=== PATIENT | female | born 1980 | race Caucasian/White ===

== ENCOUNTER 2024-08-14 08:11 | Emergency (ER) | payer OTHER, SELFPAY ==
[2024-08-14 08:12] VITALS: BP 151/111; PULSE 85; RESP 16; TEMP 36.8; O2SAT 100; BMI 38.7
--- NOTE | 2024-08-14 08:36 | ED.VIS.BACK ---
HPI History of Present Illness Chief Complaint: Back Detail of Chief Complaint: Back pain since mid April Informant: patient Onset/Context/Timing Onset: Month(s) Context: Sudden Onset Chronic pain exacerbated by: Certain movements Injury: - (Nothing that she recalls) Timing: Continuous Quality: Dull and Burning Location: Lumbar (Left L1 nerve root) Current Severity: Moderate Maximum Severity: Severe Worsened by: improves with Movement and Ambulation Relieved by: - (Prefers to stand over sitting.) Associated Symptoms Associated Symptoms: Numbness, Tingling and - (No saddle paresthesia or anesthesia. No foot drop. No buckling of the knee going up or down steps); Negative for Radiation to Right Leg, Radiation to Left Leg, Fever, Abdominal Pain, Dysuria, Unable to Ambulate, Unable to Transfer, Urinary Retention, Urinary Incontinence, Constipation or Fecal Incontinence Narrative Narrative: Patient is a 44-year-old woman with a history of hypercholesterolemia. She has a BMI of 38.7. Pain started in April. It is progressively gotten worse. It has been on the left side only. Initially the pain went from mid upper lumbar lower thoracic region to the left iliac wing. She is now complaining of burning tingling sensation L1 dermatome on the left. She has been treated with anti-inflammatories which initially worked. She was then placed on prednisone. Prednisone does help. When the prednisone is tapered to discontinue the pain becomes worse. She has been in physical therapy for 3 weeks with no improvement if anything the pain has gotten worse. She denies fever, chills night sweats. She has not had dental procedure in the past several months. She not had any surgical procedure in the past several months. She denies weight gain or weight loss. Prior similar symptoms: Yes Recent Illness/Hospitalization: No [facility] Medical History Hypercholesteremia Chronic back pain Home Medications ?Medication ?Instructions ?Recorded ?Last Taken ?Type atorvastatin 20 mg tablet 20 mg PO DAILY 08/14/24 Unknown History duloxetine 60 mg capsule,delayed 60 mg PO DAILY 08/14/24 Unknown History release Held on 08/14/24. Instructions: Pt is ill hydrocodone-acetaminophen 5-325mg 1 tab PO Q6H PRN PRN Pain 3 days 08/14/24 Unknown Rx 5mg-325mg #10 TABLETS meloxicam 15 mg tablet 15 mg PO DAILY 08/14/24 Unknown History Allergy/AdvReac Type Severity Reaction Status Date / Time No Known Allergies Allergy Verified 08/14/24 08:15 Surgical History Hx of section Social History (Updated 08/14/24 @ 08:[address] Mayo Cook MD) household members: spouse Smoking Status: Former smoker ROS ROS ED Constitutional Constitutional ED: Denies chills, fever(s), subjective or sweats Eyes Eyes: Denies change in vision Cardiovascular Cardiovascular: Denies chest pain or palpitations Respiratory/Chest Respiratory/Chest: Denies dyspnea or dyspnea on exertion Gastrointestinal Gastrointestinal: Denies abdominal pain, constipation, diarrhea, nausea or vomiting Genitourinary Genitourinary ED: Denies dysuria, hematuria or urinary frequency Musculoskeletal Musculoskeletal: Reports back pain; Denies arthralgias, myalgias or neck pain Integumentary Denies rash Neurologic Neurologic: Denies headache(s) or weakness Psychiatric Psychiatric: Denies anxiety Hematologic/Lymphatic Hematologic/Lymphatic: Denies easy bleeding or easy bruising Allergic/Immunologic Allergic/Immunologic ED: Denies mouth swelling or tongue swelling EXAM Physical Exam Const Vital Signs: 08/14/24 08:12 Temperature 98.2 F Temperature Source Oral Pulse Rate 85 Respiratory Rate 16 Blood Pressure 151/111 H Blood Pressure Mean 124 Pulse Ox 100 Oxygen Delivery Method Room Air Positive well nourished and well developed Constitutional Narrative: BMI is 38.7. General Appearance ED: well developed; Negative for pallor HEENT HEENT Narrative: Head is atraumatic normocephalic. Ears normal. Patient has multiple ear piercings. Nares patent. Eyes PERRL and EOMs intact bilaterally General Eye ED: Negative for pale conjunctiva or scleral icterus Neck no lymphadenopathy, supple and no JVD Resp normal respiratory effort and clear to auscultation bilaterally Cardio regular rate, regular rhythm, S1 normal heart sound, S2 normal heart sound and no murmurs Back/Spine normal to inspection and no thoracic nor lumbar tenderness Back/Spine Narrative: Patella and ankle reflex are 1-2+ and symmetric. EHLs intact. Normal sensation L3-S1 dermatome. 5 or 5 strength with plantar and dorsi flexion. Normal perianal sensation. Patient has altered sensation L1-L2 dermatome. There are no surgical scars noted on her back. DP and PT pulse are palpable and symmetric. General Back: Negative for CVA tenderness Thoracic Spine / Upper Back: Negative for paraspinal muscle tenderness Lumbar Spine / Lower Back: ROM limited and straight leg raise negative bilaterally Extremity normal to inspection and no clubbing, cyanosis or edema Neuro oriented x3 and no sensory deficits noted Motor Exam: strength 5/5 throughout Deep Tendon Reflexes: Rt Patellar (L4): 1+, Lt Patellar (L4): 1+, Rt Ankle (S1): 1+ and Lt Ankle (S1): 1+ Deep Tendon Reflexes Back: Rt Patellar (L4): 1+, Lt Patellar (L4): 1+, Rt Ankle (S1): 1+ and Lt Ankle (S1): 1+ Plantar Reflex: Downgoing: bilateral Psych mental status grossly normal Skin no rashes or lesions noted and no wounds General Skin Exam: Negative for jaundice or pallor MDM MDM MDM Narrative Medical decision making narrative: Patient with back pain has been going on for months and is spite of appropriate conservative therapy including physical therapy she has worsening symptoms and now symptoms that are consistent with L1 radicular pain. Patient was medicated with IV ketorolac, morphine and Zofran. MRI of the back without contrast was ordered to assess for herniated disc. Radiography Diagnostic Testing: Clinical Impression(s) from Imaging Studies Lumbar Spine MRI 08/14/24 08:37 IMPRESSION: No significant degenerative disc disease or other significant degenerative changes are seen. No stenoses identified. Reading Location: [facility] Treatment and Re-Evaluation Narrative: Patient reports pain is less with medicine given. She was informed of results. Plan is short course of opiate Gesic. She was just prescribed Cymbalta. If this does not improve she will need potentially referral to pain management. Discharge Plan Triage Chief Complaint: Back ED Provider: Mayo Cook Dx/Rx/DC Orders Clinical Impression: Acute exacerbation of chronic low back pain, Adult BMI 38.0-38.9 kg/sq m, Elevated blood-pressure reading without diagnosis of hypertension Instructions: ED Back Exercises, Lumbar, ED Back Pain (Acute or Chronic), ED Hypertension, To Be Confirmed Prescriptions: New hydrocodone-acetaminophen 5-325 mg tablet 1 tab PO Q6H PRN PRN (Reason: Pain) 3 Days Qty: 10 0RF No Action atorvastatin 20 mg tablet 20 mg PO DAILY meloxicam 15 mg tablet 15 mg PO DAILY duloxetine 60 mg capsule,delayed release(DR/EC) 60 mg PO DAILY Primary Care Provider: Shanon Orozco NP Referrals: Shanon Orozco NP, [employer] [Primary Care Provider] - 10-14 Days if not better Print Language: Nepali Disposition Disposition: Home, Self Care
--- NOTE | 2024-08-14 08:37 | MRI_ITS ---
EXAM: Lumbar spine MRI without contrast. CLINICAL HISTORY: Left radiculopathy with pain from back since mid April pain got worse on August 10. Chronic back pain M54.9, G89.29. COMPARISON: None. TECHNIQUE: Magnetic resonance imaging of the lumbosacral spine is submitted with standard protocol, sagittal and axial T1, T2, and stir sagittal without IV contrast. FINDINGS: There is normal lumbosacral vertebral body height and alignment. Vertebral body marrow signal is normal. Discs are normally hydrated. The conus medullaris is normal and terminates at L1. Multilevel mild diffuse disc bulging. No central canal or neural foraminal stenosis. MRI/Spine Lumbar (Routine) IMPRESSION: No significant degenerative disc disease or other significant degenerative davis ges are seen. No stenoses identified. [facility]
[2024-08-14] MEDS: Ondansetron 4 MG/2 ML Vial IV (08:58)
[2024-08-14] MEDS: Ketorolac 15 MG/ML Vial IV (08:58)
[2024-08-14] MEDS: Morphine 4 MG/ML Syringe IV (08:58)
[2024-08-14 12:12] VITALS: BP 138/78; PULSE 64; RESP 18; O2SAT 98
== END 2024-08-14 12:34 | disposition home or self-care (01) ==
PROVIDERS: Emergency Provider Emergency Medicine; PCP Nurse Practitioner Family; Visit Provider Emergency Medicine
DX: M54.50 Low back pain, unspecified (principal); G89.29 Other chronic pain; R03.0 Elevated blood-pressure reading, without diagnosis of hypertension; E78.00 Pure hypercholesterolemia, unspecified; R20.8 Other disturbances of skin sensation; Z87.891 Personal history of nicotine dependence
CPT/HCPCS: 72148; 96374; 96375; 99283; A4216; J2405